=== PATIENT | female | born 1970 | race Caucasian/White ===

== ENCOUNTER → 2021-07-25 | Outpatient (CLI) | payer OTHER ==
[2021-07-26 13:14] LABS: RHEUMATOID ARTHRITIS FACTOR 27.4 IU/mL (0.0-13.9)
== END ==
LOC: RAD 09:49
PROVIDERS: Internal Medicine
DX: M25.50 Pain in unspecified joint (principal); R76.8 Other specified abnormal immunological findings in serum; D89.89 Other specified disorders involving the immune mechanism, not elsewhere classified; R76.0 Raised antibody titer; Z79.01 Long term (current) use of anticoagulants; M19.90 Unspecified osteoarthritis, unspecified site
CPT/HCPCS: 36415; 73130; 73560; 82164; 83520; 86200; 86431